=== PATIENT | male | born 1990 | race Caucasian/White ===

== ENCOUNTER 2018-04-04 08:19 | Emergency (ER) | payer SELFPAY ==
[~2018-04-04] VITALS: Ht 175.3 cm; Wt 100.0 kg
[2018-04-04] MEDS ORDERED: MORPHINE SULFATE 4 MG/ML CPJ (NOT FOR IM USE) IV STA (09:54)
[2018-04-04] MEDS ORDERED: ONDANSETRON HCL 4MG/2ML INJ IV STA (09:54)
[2018-04-04] MEDS ORDERED: FLUORESCEIN SODIUM 1MG/STRIP OP ONE (10:00)
[2018-04-04] MEDS ORDERED: TETANUS, DIPHTHERIA, PERTUSSIS VAC/PF 0.5ML (>7YR OLD) IM ONE (10:00)
[2018-04-04] MEDS ORDERED: TETRACAINE 0.5% OPHTH DROPS 4ML OP ONE (10:00)
[2018-04-04] MEDS ORDERED: BACITRACIN ZINC OINT UDPKT TOP ONE (10:00)
[2018-04-04] MEDS ORDERED: LIDOCAINE HCL/PF 1% 10 MG/ML 5ML VIAL IJ ONE (10:00)
[2018-04-04] MEDS ORDERED: LIDOCAINE HCL/PF 1% 10 MG/ML 5ML VIAL IJ NR (12:45)
[2018-04-04 14:19] VITALS: BP 140/86
== END 2018-04-04 14:35 | disposition home or self-care (01) ==
LOC: ER 08:43
DX: S09.8XXA Other specified injuries of head, initial encounter (principal); M54.2 Cervicalgia; R07.89 Other chest pain; H57.8 Other specified disorders of eye and adnexa; M25.512 Pain in left shoulder; L03.114 Cellulitis of left upper limb; H92.02 Otalgia, left ear; M25.522 Pain in left elbow; Y93.89 Activity, other specified; Y92.89 Other specified places as the place of occurrence of the external cause; Z23 Encounter for immunization
CPT/HCPCS: 12002; 12011; 70450; 70486; 71101; 72110; 72125; 73030; 73080; 73090; 90471; 90715; 96374; 96375; 99284; J2270; J2405; J3490

== ENCOUNTER 2018-04-12 11:42 | Emergency (ER) | payer SELFPAY ==
[~2018-04-12] VITALS: Ht 170.2 cm; Wt 104.0 kg
[2018-04-12 12:20] VITALS: BP 155/93
== END 2018-04-12 16:52 | disposition left against medical advice (07) ==
LOC: ER 11:42
DX: S01.112D Laceration without foreign body of left eyelid and periocular area, subsequent encounter (principal); X58.XXXD Exposure to other specified factors, subsequent encounter; Z53.21 Procedure and treatment not carried out due to patient leaving prior to being seen by health care provider